=== PATIENT | male | born 2000 | race Caucasian/White ===

== ENCOUNTER 2019-05-19 02:40 | Emergency (ER) | payer BC ==
--- NOTE | 2019-05-19 03:04 | ED ---
Substance Abuse/Use - HPI Summary HPI Summary: This pt is a 18 Y/O M brought in by EMS to [facility] for alcohol intoxication. He was found in a bathroom after attending a alliance party. HE IS CURRENTLY A LEVEL 5 CAVEAT DUE TO HIS LEVEL OF INTOXICATION. - History Of Current Complaint Stated Complaint: ETOH PER EMS Time Seen by Provider: 05/19/19 02:51 Hx Obtained From: EMS Hx From Patient Unobtainable Due To: Extremis - LEVEL 5 CAVEAT DUE TO ALCOHOL INTOXICATION Associated Signs And Symptoms: Altered Mental Status - due to alcohol intoxication PMH/Surg Hx/FS Hx/Imm Hx Previously Healthy: No - UNOBTAINABLE DUE TO THE PT'S LEVEL OF ALCOHOL INTOXICATION - Social History Occupation: Student - [employer] Lives: Dormitory/Roommates Review of Systems - ROS Summary Review of Systems Summary: A FULL ROS IS UNOBTAINABLE DUE TO THE PT'S LEVEL OF INTOXICATION. Psychological: Other - Intoxicated All Other Systems Reviewed And Are Negative: No Physical Exam - Summary Physical Exam Summary: A FULL PE IS UNOBTAINABLE DUE TO THE PT'S LEVEL OF INTOXICATION. General: Well-developed, Well-nourished male. No acute distress. HEENT: Normocephalic, Atraumatic. Eyes: Conjuctiva normal, PERRL. Ears: TMs within normal limits. Nares: (-) discharge, (-) erythema. Oropharynx: Clear, mucous membranes moist, (-) exudates. Neck: Soft, FROM, (-) lymphadenopathy, (-) thyromegaly, (-) JVD. Cardiovascular: Normal sinus rhythm, (-) murmur. Lungs: Clear to auscultation bilaterally (-) wheezes, (-) rales, (-) rhonchi. Abdomen: Soft, non-tender, non-distended, (-) organomegaly, normal bowel sounds. Back: (-) CVA tenderness Extremities: No edema. Skin: Warm, dry, (-) rash. Neuro: Lethargic but arousable. Oriented x1, no focal deficits. Psychiatric: Mood normal, affect normal. Triage Information Reviewed: Yes Vital Signs On Initial Exam: Vital Signs (72 hours) 05/19/19 02:54 Temperature 98.4 F Pulse Rate 74 Respiratory 15 Rate Blood Pressure 106/69 (mmHg) O2 Sat by Pulse 95 Oximetry Vital Signs Reviewed: Yes Procedures - Sedation Patient Received Moderate/Deep Sedation with Procedure: No Diagnostics - Laboratory Result Diagrams: 05/19/19 03:33 05/19/19 03:33 Lab Statement: Any lab studies that have been ordered have been reviewed, and results considered in the medical decision making process. Course/Dx - Course Course Of Treatment: 18-year-old male with acute alcohol intoxication. Vomiting. Patient quite lethargic upon arrival. Blood alcohol 160. Patient resting comfortably. Signed out at change of shift awaiting reevaluation. - Diagnoses Provider Diagnoses: Alcohol intoxication Discharge ED - Sign-Out/Discharge Documenting (check all that apply): Sign-Out Patient Signing out patient TO: Geovanny Holder - Discharge Plan Condition: Stable - Attestation Statements Document Initiated by Scribe: Yes Documenting Scribe: Phillip Champion Provider For Whom Scribe is Documenting (Include Credential): Maribel Gramajo MD Scribe Attestation: Phillip Chris, scribed for Maribel Gramajo MD on 05/19/19 at 0645. Status of Scribe Document: Ready
[2019-05-19] MEDS ORDERED: Ondansetron INJ* 2 MG/ML VIAL IV ONE (03:13)
[2019-05-19] MEDS ORDERED: NS 0.9% 1000 ML** 1,000 ML IV ONE (03:13)
[2019-05-19 03:40] LABS: ABS Lymphocytes 0.8 10^3/ul (1.0-4.8); ABS Monocytes 0.4 10^3/ul (0-0.8); Eosinophil % 0.2 %; Hematocrit 45 % (42-52); Hemoglobin 15.9 g/dL (14.0-18.0); Lymphocyte % 8.4 %; Mean Corpuscular HGB Conc 35 g/dL (31-36); Mean Corpuscular Hemoglobin 30 pg (27-31); Mean Corpuscular Volume 86 fL (80-94); Mean Platelet Volume 8.8 fL (7.4-10.4); Platelet Count 266 10^3/uL (150-450); Red Blood Count 5.24 10^6 /uL (4.18-5.48); Red Cell Distribution Width 13 % (10-15); White Blood Count 9.2 10^3/uL (3.5-10.8)
[2019-05-19 03:55] LABS: Albumin 4.6 g/dL (3.2-5.2); Albumin/Globulin Ratio 1.8 (1-3); BUN/Creatinine Ratio 14.1 (8-20); Calcium 9.1 mg/dL (8.6-10.3); EGFR African American 140.5 (>60); EGFR Non-African American 116.1 (>60); Globulin 2.5 g/dL (2-4); Potassium 3.8 mmol/L (3.5-5.0); Total Bilirubin 0.4 mg/dL (0.2-1.0); Total Protein 7.1 g/dL (6.4-8.9)
--- NOTE | 2019-05-19 07:38 | ED ---
Progress - Progress Note Progress Note: The pt is a sign out from Dr. Gramajo at the 0705/19/2019 shift change pending sobriety and family pick remover. Pt will be discharged home with PCP follow up. Pt is agreeable with this plan. Course/Dx - Course Course Of Treatment: 18-year-old male with acute alcohol intoxication. Vomiting. Patient quite lethargic upon arrival. Blood alcohol 160. Patient resting comfortably. Signed out at change of shift awaiting reevaluation. The pt is a sign out from Dr. Gramajo at the 0705/19/2019 shift change pending sobriety and family pick remover. Pt will be discharged home with PCP follow up. Pt is agreeable with this plan. - Diagnoses Provider Diagnoses: Alcohol intoxication Discharge ED - Sign-Out/Discharge Documenting (check all that apply): Patient Departure - discharge, Receiving Sign-Out Receiving patient FROM: Maribel Gramajo - Discharge Plan Condition: Stable Disposition: HOME Patient Education Materials: Alcohol Intoxication (ED) Referrals: Care [facility] [Outside] - 3 Days Additional Instructions: FOLLOW UP WITH YOUR PRIMARY CARE PROVIDER WITHIN ONE WEEK. RETURN TO THE ED FOR ANY WORSENING OR NEW SYMPTOMS. - Billing Disposition and Condition Condition: STABLE Disposition: Home - Attestation Statements Document Initiated by Scribe: Yes Documenting Scribe: Dima Boateng Provider For Whom Izabel is Documenting (Include Credential): Jered Garcia MD Scribe Attestation: Dima Chris, scribed for Jered Garcia MD on 05/19/19 at 1827. Scribe Documentation Reviewed: Yes Provider Attestation: The documentation as recorded by the Dima peacock accurately reflects the service I personally performed and the decisions made by , Jered Garcia MD Status of Scribe Document: Viewed
[2019-05-19 08:07] VITALS: BP 130/66
== END 2019-05-19 08:00 | disposition home or self-care (01) ==
LOC: ED 02:40
DX: F10.129 Alcohol abuse with intoxication, unspecified (principal); Y90.6 Blood alcohol level of 120-199 mg/100 ml
CPT/HCPCS: 36415; 80053; 80320; 85025; 96361; 96374; 99284; G0480; J2405